=== PATIENT | male | born 1995 | race African-American/Black ===

== ENCOUNTER 2019-01-27 19:44 | Emergency (ER) | payer OTHER ==
[2019-01-27 19:54] VITALS: BP 118/71; PULSE 66; RESP 16; TEMP 98
--- NOTE | 2019-01-27 20:14 | XR ---
EXAMINATION TYPE: XR ankle complete LT DATE OF EXAM: 01/27/2019 CLINICAL HISTORY: Roll injury with pain TECHNIQUE: Frontal, lateral and oblique images of the left ankle are obtained. COMPARISON: Left ankle xray October 30, 2012. FINDINGS: There is moderate to severe focal soft tissue swelling over the lateral malleolus. There is 8mm old avulsion type fracture redemonstrated. There is no new acute fracture/dislocation evident i n the left ankle. The ankle mortise appears within normal limits. The overlying soft tissue appears unremarkable. IMPRESSION: There is no acute fracture or dislocation in the left ankle.
--- NOTE | 2019-01-27 20:49 | ED ---
Lower Extremity Injury HPI - General Chief Complaint: Extremity Injury, Lower Stated Complaint: Ankle injury Time Seen by Provider: 01/27/19 19:55 Source: patient Mode of arrival: ambulatory Limitations: no limitations - History of Present Illness Initial Comments: 23-year-old male presenting for left ankle injury. Patient states that he was walking his grass when he stepped into a hole blood by his dog. He states that he inverted his ankle. Patient states he has had a previous left ankle fracture. Patient states that he did not fall with injury to the hands and upper extremities neck or head. Patient denies any pain in the right lower extremity. Patient states he has no pain of the left foot he states is localized to the ankle lateral aspect. He states he noted lateral aspect swelling of the left ankle. Patient denies numbness tingling loss sensation: pallor of the extremity he denies any inability to wake her states she is inflammatory. Remaining review of systems negative upon arrival patient appears well no signs of acute distress. Patient presented for evaluation for possible fracture. - Related Data Home Medications Medication Instructions Recorded Confirmed No Known Home Medications 07/07/14 07/07/14 Allergies Allergy/AdvReac Type Severity Reaction Status Date / Time No Known Allergies Allergy Verified 01/27/19 19:49 Review of Systems ROS Statement: Those systems with pertinent positive or pertinent negative responses have been documented in the HPI. ROS Other: All systems not noted in ROS Statement are negative. Past Medical History Past Medical History: Asthma History of Any Multi-Drug Resistant Organisms: None Reported Past Surgical History: No Surgical Hx Reported Past Psychological History: No Psychological Hx Reported Smoking Status: Never smoker Past Alcohol Use History: None Reported Past Drug Use History: Marijuana General Exam - General Exam Comments Initial Comments: General: The patient is awake and alert, in no distress, and does not appear acutely ill. Eye: Pupils are equal, round and reactive to light, extra-ocular movements are intact. No nystagmus. There is normal conjunctiva bilaterally. No signs of icterus. Cardiovascular: There is a regular rate and rhythm. No murmur, rub or gallop is appreciated. Respiratory: Lungs are clear to auscultation, respirations are non-labored, breath sounds are equal. No wheezes, stridor, rales, or rhonchi. Gastrointestinal: [Soft, non-distended, non-tender abdomen without masses or organomegaly noted. There is no rebound or guarding present. No CVA tenderness. Bowel sounds are unremarkable.] Musculoskeletal: Upon inspection of the ankles bilaterally there is soft tissue swelling over the lateral malleolus. Patient is able to fully range the left ankle however complaints of discomfort. No noted significant laxity of the ankle joint. No tenderness to palpation of the proximal tibia and fibula. No pain with range of motion at the knee or hip of the lower extremities bilaterally. +2 dorsalis pedis pulses equal comparison bilaterally. Full strength noted including at the left ankle. Full sensation of the proximal distal to injury site. No evidence of foot drop. Neurological: A&O x 3. CN II-XII intact, There are no obvious motor or sensory deficits. Coordination appears grossly intact. Speech is normal. Skin: Skin is warm and dry and no rashes or lesions are noted. Psychiatric: Cooperative, appropriate mood & affect, normal judgment. Limitations: no limitations Course Vital Signs 01/27/19 19:49 Temperature 98 F Pulse Rate 66 Respiratory 16 Rate Blood Pressure 118/71 O2 Sat by Pulse 97 Oximetry Procedures - Orthopedic Splinting/Casting Injury #1 Side: left Lower Extremity Injury Location: ankle Lower Extremity Immobilizer: posterior splint, synthetic pre-padded splint Other Orthopedic Equipment: crutches Medical Decision Making - Medical Decision Making Well-appearing 23-year-old male. Presents for left ankle pain. Patient had inversion injury. Lateral malleolus swelling. No tenderness to palpation of foot, patient able to weight bear. Patient neurovascularly intact. Patient had previous left ankle fracture. This is evident on imaging studies previous avulsion fracture of fibula. No acute osseous findings. This time feel patient most likely has moderate left ankle sprain. Patient is placed in a posterior mold splint with stirrups. Patient provided prescription for crutches for comofrt and given orthopedic surgery follow-up. Patient is agreeable care for discharge at this time. Did discuss Rice instruction, as well as use of ibuprofen Tylenol patient for symptomatically treatment. Return parameters were discussed with patient verbalized understanding. Patient was discharged appearing well Disposition Clinical Impression: Moderate left ankle sprain, Left ankle pain Disposition: HOME SELF-CARE Condition: Good Instructions (If sedation given, give patient instructions): Ankle Sprain (ED) Additional Instructions: Please use medication as discussed. Please follow-up with orthopedic surgery as discussed within next 1-2 week. Please use crutches for ambulation. Please return to emergency room if the symptoms increase or worsen or for any other concerns. Is patient prescribed a controlled substance at d/c from ED?: No Referrals: None,Stated [Primary Care Provider] - 1-2 days Michael Neville PAC [PHYSICIAN SYSTEMS MANAGEMENT CONSULTANT] - 1-2 days Time of Disposition: 20:49
== END 2019-01-27 20:53 | disposition home or self-care (01) ==
LOC: EC 19:44
DX: S93.402A Sprain of unspecified ligament of left ankle, initial encounter (principal); Z87.81 Personal history of (healed) traumatic fracture; X50.1XXA Overexertion from prolonged static or awkward postures, initial encounter; Y93.01 Activity, walking, marching and hiking; Y92.009 Unspecified place in unspecified non-institutional (private) residence as the place of occurrence of the external cause
CPT/HCPCS: 29515; 99283

== ENCOUNTER 2021-05-12 17:40 | Emergency (ER) | payer OTHER ==
[2021-05-12] MEDS ORDERED: DIPH,PERTUS(ACELL)TETVAC-LF 0.5 ML VIAL IM ONE (17:47)
[2021-05-12] MEDS ORDERED: ONDANSETRON 4 MG/2 ML VIAL IVP STA (17:50)
[2021-05-12] MEDS ORDERED: HYDROmorphone 1 MG/ML 1 ML SYRINGE IVP STA (17:50)
[2021-05-12 17:55] VITALS: TEMP 98.1
--- NOTE | 2021-05-12 17:58 | ED ---
General Adult HPI - General Chief complaint: Wound/Laceration Stated complaint: Cut off right thumb Time Seen by Provider: 05/12/21 17:43 Source: patient Mode of arrival: ambulatory Limitations: no limitations - History of Present Illness Initial comments: Dictation was produced using [employer] dictation software. please excuse any grammatical, word or spelling errors. Chief Complaint: 26-year-old male with finger amputation History of Present Illness: 26-year-old male presents with accidental amputation of the right thumb. Patient I selected cutting it with a circular saw approximately 5 minutes prior to arrival, 5:35 PM. Patient's last oral intake was one hour ago. Patient has no medical problems. The ROS documented in this emergency department record has been reviewed and confirmed by me. Those systems with pertinent positive or negative responses have been documented in the HPI. All other systems are other negative and/or noncontributory. PHYSICAL EXAM: General Impression: Alert and oriented x3, not in acute distress HEENT: Normocephalic atraumatic, extra-ocular movements intact, pupils equal and reactive to light bilaterally, mucous membranes moist. Cardiovascular: Heart regular rate and rhythm Chest: Able to complete full sentences, no retractions, no tachypnea Abdomen: abdomen soft, non-tender, non-distended, no organomegaly Musculoskeletal: Pulses present and equal in all extremities, no peripheral edema Motor: no focal deficits noted Neurological: CN II-XII grossly intact, no focal motor or sensory deficits noted Skin: Intact with no visualized rashes Psych: Normal affect and mood Right hand: Amputation of the right thumb at the right DIP joint. Clean-cut, amputated fragment is also clean-cut ED course: 26-year-old male presents emergency department for accidental amputation of right thumb with circular saw. Signs upon arrival are within acceptable limits. Case discussed immediately with hand surgeon Dr. Solitario. She states that there are 2 options that patient get a amputation revision or to transfer to outside facility to attempt reimplantation of amputated segment. Patient 1 g of Ancef. Tetanus is updated. Patient's amputated segment was wrapped and damp gauze in a Ziploc bag on some ice. Case discussed with Dr. Modi from [facility] and [facility] willing [facility] for [facility] ER transfer. - Related Data Home Medications Medication Instructions Recorded Confirmed No Known Home Medications 07/07/14 07/07/14 Allergies Allergy/AdvReac Type Severity Reaction Status Date / Time No Known Allergies Allergy Verified 01/27/19 19:49 Review of Systems ROS Statement: Those systems with pertinent positive or pertinent negative responses have been documented in the HPI. ROS Other: All systems not noted in ROS Statement are negative. Past Medical History Past Medical History: Asthma History of Any Multi-Drug Resistant Organisms: None Reported Past Surgical History: No Surgical Hx Reported Past Psychological History: No Psychological Hx Reported Past Alcohol Use History: None Reported Past Drug Use History: Marijuana General Exam Limitations: no limitations Course Vital Signs 05/12/21 17:47 Temperature 98.1 F Pulse Rate 81 Respiratory 22 Rate Blood Pressure 130/94 O2 Sat by Pulse 100 Oximetry Medical Decision Making - Lab Data Result diagrams: 05/12/21 17:59 05/12/21 17:59 Lab Results 05/12/21 05/12/21 05/12/21 Range/Units 17:59 17:59 17:59 WBC 9.1 (3.8-10.6) k/uL RBC 5.05 (4.30-5.90) m/uL Hgb 14.5 (13.0-17.5) gm/dL Hct 44.9 (39.0-53.0) % MCV 88.9 (80.0-100.0) fL MCH 28.7 (25.0-35.0) pg MCHC 32.3 (31.0-37.0) g/dL RDW 12.8 (11.5-15.5) % Plt Count 209 (150-450) k/uL MPV 7.8 Neutrophils % 63 % Lymphocytes % 28 % Monocytes % 4 % Eosinophils % 2 % Basophils % 1 % Neutrophils # 5.8 (1.3-7.7) k/uL Lymphocytes # 2.6 (1.0-4.8) k/uL Monocytes # 0.4 (0-1.0) k/uL Eosinophils # 0.2 (0-0.7) k/uL Basophils # 0.1 (0-0.2) k/uL PT 10.9 (9.0-12.0) sec INR 1.0 (<1.2) APTT 25.6 (22.0-30.0) sec Sodium 139 (137-145) mmol/L Potassium 3.5 (3.5-5.1) mmol/L Chloride 107 (98-107) mmol/L Carbon Dioxide 24 (22-30) mmol/L Anion Gap 8 mmol/L BUN 10 (9-20) mg/dL Creatinine 1.14 (0.66-1.25) mg/dL Est GFR (CKD-EPI)AfAm >90 (>60 ml/min/1.73 sqM) Est GFR (CKD-EPI)NonAf 89 (>60 ml/min/1.73 sqM) Glucose 102 H (74-99) mg/dL Calcium 9.6 (8.4-10.2) mg/dL Disposition Clinical Impression: Finger amputation, traumatic Disposition: OTHER INSTITUTION NOT DEFINED Condition: Critical Referrals: None,Stated [Primary Care Provider] - 1-2 days - Out of Hospital Transfer - Req. Specs Out of Hospital Transfer - Requested Specifics: Other Emergency Center ([facility])
[2021-05-12 18:08] LABS: Basophils # (A) 0.1 k/uL (0-0.2); Basophils % (A) 1 %; Eosinophils # (A) 0.2 k/uL (0-0.7); Eosinophils % (A) 2 %; HCT 44.9 % (39.0-53.0); HGB 14.5 gm/dL (13.0-17.5); Lymphocytes # (A) 2.6 k/uL (1.0-4.8); Lymphocytes % (A) 28 %; MCH 28.7 pg (25.0-35.0); MCHC 32.3 g/dL (31.0-37.0); MCV 88.9 fL (80.0-100.0); Mean Platelet Volume 7.8; Monocytes # (A) 0.4 k/uL (0-1.0); Monocytes % (A) 4 %; Neutrophils # (A) 5.8 k/uL (1.3-7.7); Neutrophils % (A) 63 %; Platelet Count 209 k/uL (150-450); RBC 5.05 m/uL (4.30-5.90); RDW 12.8 % (11.5-15.5); WBC 9.1 k/uL (3.8-10.6)
[2021-05-12 18:15] LABS: African American GFR (CKD) >90 (>60 ml/min/1.73 sqM); Anion Gap 8 mmol/L; Blood Urea Nitrogen 10 mg/dL (9-20); Calcium 9.6 mg/dL (8.4-10.2); Carbon Dioxide 24 mmol/L (22-30); Chloride 107 mmol/L (98-107); Glucose 102 mg/dL (74-99); Non-African American GFR(CKD) 89 (>60 ml/min/1.73 sqM); Potassium 3.5 mmol/L (3.5-5.1); Sodium 139 mmol/L (137-145)
[2021-05-12 18:19] LABS: Partial Thromboplastin Time 25.6 sec (22.0-30.0); Prothrombin Time 10.9 sec (9.0-12.0)
--- NOTE | 2021-05-12 18:39 | XR ---
EXAMINATION TYPE: XR finger RT DATE OF EXAM: 05/12/2021 COMPARISON: NONE HISTORY: Amputation TECHNIQUE: 3 views FINDINGS: There is amputation of the right thumb at the IP joint. There are small densities adjacent to the head of the proximal phalanx that could be foreign bodies or bone fragments. IMPRESSION: Amputation deformity.
[2021-05-12 18:51] VITALS: BP 118/70; PULSE 76; RESP 18
== END 2021-05-12 18:48 | disposition other institution (70) ==
LOC: EC 17:40
DX: S68.011A Complete traumatic metacarpophalangeal amputation of right thumb, initial encounter (principal); J45.909 Unspecified asthma, uncomplicated; F12.90 Cannabis use, unspecified, uncomplicated; Z23 Encounter for immunization; W27.0XXA Contact with workbench tool, initial encounter
CPT/HCPCS: 36415; 80048; 85025; 85610; 85730; 73140; 90715; 96374; 96375 ×2; 90471; 99284; J2405; J0690; J1170